=== PATIENT | male | born 1985 | race Caucasian/White ===

== ENCOUNTER 2019-01-13 14:39 | Outpatient (CLI) | payer OTHER ==
--- NOTE | 2019-01-14 00:31 | Diagnostic Imaging Report ---
BHASKAR STALLWORTH [facility] [id number] Formerly [facility], [facility] [address] [address] Report Submission Date: January 13, 2019 3:22:44 PM CDT Patient Study Name: JUSTINE LUGO Date: January 13, 2019 2:47:53 PM CDT Modality Type: DX Gender: M Description: : 89 Institution: [facility] Physician: BHASKAR STALLWORTH Examination: Plain film left wrist History: INJURY OF LEFT WRIST WITH SHARP METAL PIECES Comparison exams: None available Findings: 3 views of the left wrist demonstrate normal cortical margins. No fracture. No dislocation. Small metallic densities within the soft tissue along the ulnar aspect of the wrist. Impression: No acute osseous abnormality. Soft tissue metallic foreign bodies. Electronically signed on January 13, 2019 3:22:44 PM CDT by: Yvan ALVARADO
== END 2019-01-13 14:41 ==
LOC: RAD 14:39
PROVIDERS: ATTEND Family Medicine
DX: M79.5 Residual foreign body in soft tissue (principal); S69.92XA Unspecified injury of left wrist, hand and finger(s), initial encounter
CPT/HCPCS: 73110